=== PATIENT | female | born 1955 | race Caucasian/White ===

== ENCOUNTER → 2019-07-05 | Outpatient (CLI) | payer MEDICARE ==
--- NOTE | 2019-07-05 12:39 | XR ---
EXAMINATION TYPE: XR chest 2V DATE OF EXAM: 07/05/2019 COMPARISON: NONE HISTORY: Presurgical study. TECHNIQUE: Frontal and lateral views of the chest are obtained. FINDINGS: There is no focal air space opacity, pleural effusion, or pneumothorax seen. The cardiac silhouette size is is upper limits of normal. Multilevel spurring in the thoracic spine. IMPRESSION: No acute cardiopulmonary process.
[2019-07-05 13:59] LABS: Basophils # (A) 0.1 k/uL (0-0.2); Basophils % (A) 1 %; Eosinophils # (A) 0.2 k/uL (0-0.7); Eosinophils % (A) 3 %; HCT 42.7 % (34.0-46.0); Lymphocytes # (A) 1.6 k/uL (1.0-4.8); Lymphocytes % (A) 28 %; MCH 31.9 pg (25.0-35.0); MCHC 32.9 g/dL (31.0-37.0); Mean Platelet Volume 7.7; Monocytes # (A) 0.2 k/uL (0-1.0); Monocytes % (A) 4 %; Neutrophils # (A) 3.5 k/uL (1.3-7.7); Neutrophils % (A) 62 %; Platelet Count 173 k/uL (150-450); RDW 13.2 % (11.5-15.5); WBC 5.7 k/uL (3.8-10.6)
[2019-07-05 14:03] LABS: Appearance,Urine Clear (Clear); Bilirubin,Urine Negative (Negative); Blood,Urine Negative (Negative); Color,Urine Yellow; Glucose,Urine (UA) Negative (Negative); Ketones,Urine Negative (Negative); Leukocyte Esterase,Urine Negative (Negative); Nitrite,Urine Negative (Negative); PH, Urine 5.5 (5.0-8.0); Protein,Urine Negative (Negative); Specific Gravity,Urine 1.023 (1.001-1.035)
[2019-07-05 14:07] LABS: Calcium 9.4 mg/dL (8.4-10.2); Potassium 4.4 mmol/L (3.5-5.1)
[2019-07-05 14:12] LABS: INR 0.9 (<1.2); Partial Thromboplastin Time 24.3 sec (22.0-30.0); Prothrombin Time 9.5 sec (9.0-12.0)
== END | disposition home or self-care (01) ==
LOC: LABPAT 12:11
PROVIDERS: ATTEND Orthopaedic Surgery Orthopaedic Surgery of the Spine
DX: Z01.812 Encounter for preprocedural laboratory examination (principal); Z01.818 Encounter for other preprocedural examination; M48.061 Spinal stenosis, lumbar region without neurogenic claudication; Z79.01 Long term (current) use of anticoagulants
CPT/HCPCS: 36415; 71046; 80048; 81003; 85025; 85610; 85730; 87070; 93005

== ENCOUNTER 2019-07-14 07:34 | Inpatient (IN) | payer MEDICARE ==
[~2019-07-14 07:34] MED LIST: BACITRACIN 50,000 UNIT, POLYMYXIN B 500,000 UNIT in SODIUM CHLORIDE 0.9% IRRIGATIO 1,00... IRRIGATION ONE; DEXAMETHASONE SOD PHOSPHATE 10 MG/ML 1 ML VIAL IV ONE; ONDANSETRON 4 MG/2 ML VIAL IVP ONE; ONDANSETRON 4 MG/2 ML VIAL IVP PRN
[2019-07-14] MEDS ORDERED: LACTATED RINGERS 1,000 ML IV ONE ×3 (09:02→13:21)
[2019-07-14] MEDS ORDERED: ePHEDrine SULFATE/0.9% NACL/PF 50 MG/5 ML SYRINGE IV ONE (10:01)
[2019-07-14] MEDS ORDERED: SUCCINYLCHOLINE CHLORIDE 100 MG/5 ML SYR IV ONE (10:01)
[2019-07-14] MEDS ORDERED: KETAMINE 10 MG/ML 20 ML VIAL ONE (10:01)
[2019-07-14] MEDS ORDERED: MIDAZOLAM 2 MG/2 ML VIAL ONE (10:01)
[2019-07-14] MEDS ORDERED: HEPARIN SODIUM,PORCINE 10,000 UNIT/ML 1 ML VIAL ONE (10:01)
[2019-07-14] MEDS ORDERED: HYDROmorphone (PF) 1 MG/ML ONE (10:01)
[2019-07-14] MEDS ORDERED: fentaNYL (PF) 50 MCG/ML 2 ML AMP ONE (10:01)
[2019-07-14] MEDS ORDERED: PROPOFOL 10 MG/ML 20 ML VIAL IV ONE (10:01)
[2019-07-14] MEDS ORDERED: SODIUM CHLORIDE 0.9% IRRIG 1,000 ML BTL IRRIGATION ONE (10:01)
[2019-07-14] MEDS ORDERED: LIDOCAINE 1% INJ 10MG/ML (20 ML MDV) ONE (10:01)
[2019-07-14] MEDS ORDERED: PHENYLEPHRINE-0.9% NACL SYG 1 MG/10 ML SYRINGE ONE (10:01)
[2019-07-14] MEDS ORDERED: LIDOCAINE 1%-EPI 1:100,000 30 ML VIAL SQ ONE (10:54)
[2019-07-14] MEDS ORDERED: THROMBIN (BOVINE) 5,000 UNIT VIAL TOPICAL ONE (10:55)
[2019-07-14] MEDS ORDERED: GELATIN SPONGE,ABSORB (LARGE) 1 EACH SPONGE TOPICAL ONE (10:55)
[2019-07-14] MEDS ORDERED: HYDROmorphone 0.5 MG/0.5 ML SYRINGE IVP PRN (15:05)
[2019-07-14] MEDS ORDERED: MAGNESIUM HYDROXIDE 2,400 MG/10 ML CUP PO PRN (15:05)
[2019-07-14] MEDS ORDERED: BENZOCAINE/MENTHOL LOZENG 1 EACH LOZENGE MUCOUS MEM PRN (15:05)
[2019-07-14] MEDS ORDERED: HYDROcodone/APAP 5-325MG 1 EACH TAB PO PRN (15:06)
[2019-07-14] MEDS ORDERED: ONDANSETRON 4 MG/2 ML VIAL IVP PRN (15:06)
[2019-07-14] MEDS ORDERED: GABAPENTIN 300 MG CAP PO PRN (15:08)
--- NOTE | 2019-07-14 15:17 | P.OP ---
Date of Procedure: 07/14/19 Preoperative Diagnosis: Severe spinal stenosis L3 4 L4 5, lower extremity radiculopathy, neurogenic claudication, degenerative disc disease, facet arthrosis, obesity Postoperative Diagnosis: Same Anesthesia: GETA Pathology: none sent Condition: stable Disposition: PACU Description of Procedure: DESCRIPTION OF PROCEDURE(S): BRIEF OPERATIVE NOTE Preoperative Diagnosis: Severe spinal stenosis L3 4 L4 5, lower extremity radiculopathy, neurogenic claudication, degenerative disc disease, facet arthrosis, obesity Postoperative Diagnosis:Severe spinal stenosis L3 4 L4 5, lower extremity radiculopathy, neurogenic claudication, degenerative disc disease, facet arthrosis, obesity Procedure: Laminectomy and decompression L3 4 L4 5 Minimally invasive Posterior lateral decompression and facet fusion L3 4 L4 5 with computer navigation Minimally invasive Transforaminal lumbar interbody fusion for a 360 fusion L3 4 L4 5 with computer navigation Discectomy for decompression L3 4 L4 5 Placement of interbody graft L3 4 L4 5 Use of computer navigation assistance Local autogenous bone grafting Harvesting of bone marrow aspirate. The vertebral body and pedicle of L3 He's of fluoroscopic guidance Use of Cell Saver Use of bone graft extenders Increased time and difficulty of the case due to patient body habitus Surgeon: Dr. Woodward Barkeep: Lester SIEGEL who is present throughout the entire the case persistence during positioning, dissection, exposure, visualization, and all crucial elements of the case as well as closure. Anesthesia: General anesthesia Estimated blood loss: Approximately 650 mL with 280 connectors Cell Saver Complications: None apparent Components implanted: K2M minimally invasive [place] pedicle screw system with use of 6 screws measuring 6.5 x 45 mm with 2 rods and 2 [place] interbody cages with one large osteal amp sponge and 30 mL of DBX bone fibers to supplement the local autogenous and bone marrow aspirate graft Disposition: To recovery room in good stable condition. OPERATIVE INDICATIONS The patient has had long-standing issues in their lower back and lower extremities. She is having worsening pain in her back in her bilateral lower extremities and having greater debility with trying to ambulate mobilize due to her back and lower external symptoms. She is having severe radiculopathy with neurogenic claudication. She is found have severe spinal stenosis at her lumbar spine with degenerative changes correlated well with her low back and lower extremity symptoms. The patient has been through conservative treatment. She is not having any prolonged benefit despite aggressive conservative treatment. We discussed various treatment options including surgery, and the patient wishes to proceed with surgery We discussed the risk, patient's alternatives and benefits of surgery including but not limited to, risk of bleeding risk of infection, risk of need for further surgery, risk of decreased, loss of motion, muscle function, malunion nonunion, hardware failure, nerve damage, paralysis, heart attack, blindness and . OPERATIVE SUMMARY After discussing all the risks, patient alternatives and benefits at length, the patient elected to proceed with surgical intervention, signed informed consent, and presented for their procedure. The patient was seen and examined in the preoperative holding area and the surgical site was marked. The patient was given antibiotics and brought to the operating room. The patient was sedated and intubated by anesthesia in standard fashion. The patient was positioned on to the operating room table in a prone position on the appropriate frame which was well-padded and well molded. We were careful to pad any bony prominences and pressure points. We were careful to maintain the patient's cervical spine and good neutral alignment and position throughout. The patient was prepped and draped in a normal standard fashion. An appropriate timeout and keystone protocol performed. We were able to proceed with the surgery. The local wound area was infiltrated with local anesthetic. The patient is obese and that added to significant difficulty and increased time and difficulty of the case for positioning dissection exposure visualization decompression placement of hardware and closure. I was able utilize C-arm guidance as well as the computer navigation system to e stablish appropriate position over the pedicles bilaterally at the appropriate levels at L3 4 and 5. I was able to palpate the posterior superior iliac spine and place [address] to assist and establish the computer navigation reference. With the appropriate levels confirmed was able to make small stab incisions over the appropriate pedicle sites bilaterally. Utilizing C-arm in his house able to establish a Jamshidi needle over the lateral aspect of the pedicle and advanced the trocar into the pedicle being careful not to breech superiorly inferiorly medially or laterally. Position was confirmed regularly with computer navigation as well as AP and lateral images on C-arm. I was able to establish the trocar into the pedicle appropriately into the posterior aspect of the vertebral body bilaterally at the appropriate levels at L3-L4 and L5. This was done at each of the pedicle positions and each of the vertebrae. At L3 on the right I was able to withdraw approximately 20 mL of bone marrow aspirate via the trocar to be used later in the case for grafting. I was able place the guidewire into the trocar and into the vertebral body appropriately under computer navigation and C-arm guidance. Dissection was taken down over the wire to the appropriate starting position for the screw placed. The appropriate length screw was chosen, threaded over the guidewire and screwed appropriately into the pedicle and vertebral body under C-arm guidance and computer navigation guidance in excellent alignment and position with good bony purchase. This is done at each of the screw sites at the appropriate levels at L3-L4 and L5 bilaterally. With the screws intact I extended the incision to connect the screw hole sites on the most symptomatic side on the right. I dissected down to establish access over the pars and lamina to the base of the spinous process. I was able to expose the facet joint. The capsule the facet was taken down and showed some facet arthrosis at the joint. I was able to use a combination of curettes and [place] rongeurs and a high-speed drill to take down the facet joint and do a facetectomy. Partial laminectomy was also performed. I was able get excellent foraminal decompression and central decompression with undermining across midline to perform a laminectomy centrally and contralaterally. As able get good central decompression. The ligamentum flavum was taken down to further decompress centrally and at bilateral neural foramen. I started at L45 and then moved to L3 4. I was able to expose the disc space and visualize the traversing nerve root. Note was made of some disc protrusion at the level causing further compression of the nerve root. I was able to establish a annulotomy at the appropriate level protecting soft tissue and neural structures. Note was made of some disc desiccation at the disc. I performed a complete discectomy with accommodation of curettes and rasps and scrapers. I was able get good endplate preparation at the disc space. I sized for the appropriate size interbody spacer protecting the soft tissue and neural structures. The wound was copiously irrigated and suctioned dry. There is no evidence of any dural tear or leak. I was able to pack the disc space with local autogenous bone graft as well as a small amount of bone graft which was also placed into the interbody cage itself. Protecting the soft tissue structures and neural structures I was able place the interbody cage in good alignment and good position with good fit and fill at the interbody space. His issues was confirmed with C-arm guidance. Good hemostasis maintained. There is no evidence of any dural tear or leak. The wound was irrigated and suctioned dry. With the hardware intact, intraoperative C-arm imaging was again taken which showed good alignment and position of the hardware at the appropriate levels of L3 4 and 5. We were then able to measure, contour and place the rods and appropriate hardware bilaterally. I was able to place capcrews, tighten them down, and torque them with the torque screwdriver appropriately. With this intact I was able to place the local autogenous bone graft with additional bone graft enhancer as necessary into the posterior lateral gutters over the decorticated transverse processes. The remainder of the bone graft was placed over the facet joint on the contralateral side after taking down the facet joint capsule. With the bone graft intact, a stable construct, and good decompression at the appropriate levels, we were able to proceed with closure. Good hemostasis was maintained. There is no evidence of dural tear or leak. The fascia was closed for a watertight closure. he subcuticular tissue was closed with absorbable suture. The wound was cleaned and dried and dressed with the appropriate dressing. The drapes were broken down. The patient was gently rolled back onto their hospital bed being careful to maintain their cervical spine and good neutral alignment and position. They were woken up by anesthesia, extubated, and brought to the recovery room in good stable condition. The patient will be admitted to the hospital for appropriate postoperative care, medical management and monitoring. We will continue to follow them closely about the postoperative course.
[2019-07-14] MEDS: HYDROmorphone 0.5 MG/0.5 ML SYRINGE IVP PRN ×4 (15:22→16:17)
[2019-07-14] MEDS ORDERED: HYDROmorphone 1 MG/ML 1 ML SYRINGE IVP ONE (15:23)
--- NOTE | 2019-07-14 15:36 | XR ---
Fluoroscopy INDICATION: Pain FINDINGS: Images obtained: 2. IMPRESSIONS: 1. Documentation of fluoroscopy.
[2019-07-14] MEDS ORDERED: ceFAZolin 3 GM in SODIUM CHLORIDE 0.9% 100 ML IVPB SCH (16:00)
--- NOTE | 2019-07-14 16:00 | FL ---
Fluoroscopy INDICATION: Pain FINDINGS: Fluoroscopy time: 1 minute to seconds. Images obtained: 2. IMPRESSIONS: 1. Documentation of fluoroscopy.
[2019-07-14] MEDS: LACTATED RINGERS 1,000 ML IV SCH (16:50)
[2019-07-14 17:37] VITALS: BMI 36.3
[2019-07-14] MEDS: SODIUM CHLORIDE 0.9% 1,000 ML IV SCH (18:05)
[2019-07-14] MEDS ORDERED: ALPRAZolam 0.25 MG TAB PO PRN (19:14)
[2019-07-14] MEDS: HYDROcodone/APAP 5-325MG 1 EACH TAB PO PRN (19:34)
[2019-07-14] MEDS: HYDROmorphone 1 MG/ML 1 ML SYRINGE IVP PRN (20:45)
[2019-07-14] MEDS: HEPARIN SODIUM,PORCINE 5,000 UNIT/ML 1 ML VIAL SQ SCH (20:45)
--- NOTE | 2019-07-14 22:13 | CONS ---
CONSULTATION DATE OF SERVICE: 07/14/2019 REASON FOR CONSULTATION: Advice regarding hypertension and multiple medical issues, requested by Dr. Woodward. HISTORY OF PRESENT ILLNESS: This is a 63-year-old woman with a past medical history of hypertension, history of colitis, right leg pain and sciatica, history of depression, nicotine dependence, being followed by Dr. Felicity Corona in the outpatient setting. She underwent laminectomy and decompression of L3-4, L4-5 for severe spinal stenosis and DJD. The patient tolerated the procedure well. There is no history of any chest pain, no history of palpitation, headache, loss of consciousness, nausea, vomiting, diarrhea, fever, rigor or chills at this time. PAST MEDICAL HISTORY: 1. History of hypertension. 2. History of colitis. 3. History of DJD. 4. Depression. HOME MEDICATIONS: 1. Zestoretic 20/12.5 mg p.o. daily. 2. Gabapentin 600 mg t.i.d. p.r.n. 3. Clobetasol 1 application daily. 4. Celebrex 200 mg p.o. daily. ALLERGIES: 1. LATEX. 2. OCEAN PERCH. 3. WEEDS. FAMILY HISTORY: No history of heart disease or strokes in the family. SOCIAL HISTORY: History of smoking, continued, ongoing. Occasional alcohol intake. REVIEW OF SYSTEMS: ENT: No diminished hearing. No diminished vision. CARDIOVASCULAR SYSTEM: No angina, palpitations. RESPIRATORY SYSTEM: No cough, hemoptysis. GI: No nausea, vomiting. : No dysuria or retention. NERVOUS SYSTEM: No numbness, weakness. ALLERGY/IMMUNOLOGY: No asthma, hayfever. MUSCULOSKELETAL: As mentioned earlier. HEMATOLOGY/ONCOLOGY: No history of anemia. ENDOCRINE: No history of diabetes, hypothyroidism. CONSTITUTIONAL: As mentioned earlier. DERMATOLOGY: Negative. RHEUMATOLOGY: Negative. PSYCHIATRY: As mentioned earlier. PHYSICAL EXAMINATION: Patient alert and oriented x3. Pulse is 72, blood pressure 110/70, respiration 20, temperature normal, pulse ox 94% on 3 L. HEENT: Conjunctivae normal. NECK: No jugular venous distention. CARDIOVASCULAR SYSTEM: S1, S2 muffled. RESPIRATORY SYSTEM: Breath sounds diminished at the bases. No rhonchi. No crackles. ABDOMEN: Soft, non-tender. No mass palpable. LEGS: No edema. No swelling. NERVOUS SYSTEM: Higher functions as mentioned earlier. Moves upper limbs. No focal deficit. EXAMINATION OF THE BACK: Status post surgery. LABS: Hematology normal. Coags are normal. Preoperative labs, chemistries also normal. UA unremarkable. ASSESSMENT: 1. Status post laminectomy and decompression of L3-4, L4-5 for severe spinal stenosis and degenerative joint disease with radiculopathy. 2. Hypertension. 3. History of colitis. 4. History of eczema. 5. History of left oblique nerve palsy. 6. History of depression. 7. History of nicotine dependence. RECOMMENDATIONS AND DISCUSSION: In this 63-year-old woman who presented with multiple medical issues, at this time I recommend to continue current management, continue with symptomatic treatment. Otherwise, DVT prophylaxis, incentive spirometry. Will follow the patient closely with you. The patient may be asked to follow up with her primary physician closely after discharge. Thank you, Dr. Woodward, for letting us participate in the care of this patient. MMODL / IJN: [id number] /
[2019-07-15] MEDS: HYDROmorphone 1 MG/ML 1 ML SYRINGE IVP PRN ×4 (02:34→23:32)
[2019-07-15] MEDS: HYDROcodone/APAP 5-325MG 1 EACH TAB PO PRN ×3 (04:17→22:23)
[2019-07-15] MEDS: SODIUM CHLORIDE 0.9% 1,000 ML IV SCH ×2 (04:21→20:02)
[2019-07-15] MEDS: LACTATED RINGERS 1,000 ML IV SCH (04:58)
[2019-07-15 08:21] LABS: Basophils % (A) 0 %; Eosinophils % (A) 0 %; HCT 36.6 % (34.0-46.0); Lymphocytes # (A) 1.3 k/uL (1.0-4.8); Lymphocytes % (A) 10 %; MCHC 32.8 g/dL (31.0-37.0); MCV 97.6 fL (80.0-100.0); Mean Platelet Volume 7.7; Monocytes # (A) 0.3 k/uL (0-1.0); Monocytes % (A) 3 %; Neutrophils # (A) 11.1 k/uL (1.3-7.7); Neutrophils % (A) 86 %; Platelet Count 198 k/uL (150-450); RBC 3.75 m/uL (3.80-5.40); RDW 13.2 % (11.5-15.5); WBC 12.9 k/uL (3.8-10.6)
[2019-07-15 08:24] LABS: Potassium 4.4 mmol/L (3.5-5.1)
--- NOTE | 2019-07-15 08:40 | P.PN ---
Progress Note - Text Progress Note Date: 07/15/19 Postoperative day #1 Patient is seen and examined today at bedside. The patient has some pain around the surgical site as expected. Pain is being controlled with medication. She was able to the bedside of bed yesterday. She denies any nausea or vomiting. She is still on nasal cannula. Physical Exam Afebrile with stable vital signs Abdomen is soft nontender. Chest has good excursion deep and space expiration The incision site is clean dry and intact. No erythema there is no purulence. Dressings intact Extremities have not had neurologic change from prior to surgery. She has sustained dorsal flexion plantarflexion and EHL intact. Thigh and calf soft. Negative Homans Calves and thighs were soft nontender without evidence of DVT. Assessment/Plan Postoperative day 1 status post minimally invasive decompression and fusion L3 4 L4 5 for her severe spinal stenosis with lower extremity radiculopathy and neurogenic claudication Patient is progressing as expected from the surgery. She has been able to sit up already and will start to mobilize further with physical therapy. Her Simon was discontinued and she feels that she'll be able to void appropriately. She is tolerating her diet adequately. We will continue to increase the patient's mobilization with therapy. We will continue pain control with oral or IV medications. We'll have case management see her in regards to discharge planning as she may require some home health but feels she could be ready for discharge home in the next 2 days or so . We'll continue to follow patient closely.
[2019-07-15] MEDS: LISINOPRIL-HCTZ 20-12.5 MG 1 EACH TAB PO SCH (09:14)
[2019-07-15] MEDS: HEPARIN SODIUM,PORCINE 5,000 UNIT/ML 1 ML VIAL SQ SCH ×2 (09:14→19:51)
[2019-07-15] MEDS: CLOBETASOL PROP 0.05% OINT 15GM TOPICAL SCH (09:14)
[2019-07-15] MEDS: SENNOSIDES-DOCUSATE SODIUM 1 EACH TAB PO SCH (09:14)
--- NOTE | 2019-07-15 16:26 | PN ---
PROGRESS NOTE DATE OF SERVICE: 07/15/2019. This 63-year-old woman who was admitted after laminectomy and decompression at L3-4, L4- 5 is improving significantly. No chest pain. No palpitations. No fever. PHYSICAL EXAMINATION: Alert and oriented x3. Pulse 89, blood pressure 93/60, respirations 16, temperature 98.2, pulse ox 97% on 3 L. HEENT: Conjunctivae normal. NECK: No jugular venous distention. CARDIOVASCULAR SYSTEM: S1, S2 muffled. RESPIRATORY SYSTEM: Breath sounds diminished at the bases. No rhonchi. No crackles. ABDOMEN: Soft. LEGS: No edema. No swelling. NERVOUS SYSTEM: No focal deficit. LABS: WBC 12.9, creatinine 1.17. The previous creatinine was normal. ASSESSMENT: 1. Status post laminectomy and decompression at L3-4, L4-5 for severe spinal stenosis and degenerative joint disease and radiculopathy. 2. Hypertension. 3. History of colitis. 4. History of eczema. 5. History of oblique nerve palsy. 6. History of depression. 7. History of nicotine dependence. RECOMMENDATIONS AND DISCUSSION: I recommend to continue current medications, continue with the monitoring, symptomatic treatment. Otherwise, we will check the UA with micro. Incentive spirometry. DVT prophylaxis. Further recommendations to follow. MMODL / IJN: [id number] /
[2019-07-15] MEDS ORDERED: HYDROcodone/APAP 7.5-325MG 1 EACH TAB PO PRN (23:26)
[2019-07-16] MEDS: LACTATED RINGERS 1,000 ML IV SCH (00:02)
[2019-07-16] MEDS: HYDROmorphone 1 MG/ML 1 ML SYRINGE IVP PRN ×3 (02:51→12:09)
[2019-07-16 07:11] LABS: Basophils # (A) 0.1 k/uL (0-0.2); Basophils % (A) 1 %; Eosinophils # (A) 0.2 k/uL (0-0.7); Eosinophils % (A) 1 %; HCT 34.3 % (34.0-46.0); HGB 11.2 gm/dL (11.4-16.0); Lymphocytes # (A) 1.3 k/uL (1.0-4.8); Lymphocytes % (A) 10 %; MCH 32.1 pg (25.0-35.0); MCHC 32.6 g/dL (31.0-37.0); MCV 98.5 fL (80.0-100.0); Mean Platelet Volume 8.5; Monocytes # (A) 0.4 k/uL (0-1.0); Monocytes % (A) 3 %; Neutrophils # (A) 11.2 k/uL (1.3-7.7); Neutrophils % (A) 84 %; Platelet Count 146 k/uL (150-450); RBC 3.48 m/uL (3.80-5.40); RDW 13.4 % (11.5-15.5); WBC 13.3 k/uL (3.8-10.6)
[2019-07-16 07:23] LABS: Calcium 7.7 mg/dL (8.4-10.2); Potassium 4.4 mmol/L (3.5-5.1)
--- NOTE | 2019-07-16 08:51 | P.PN ---
Progress Note - Text Progress Note Date: 07/16/19 Orthopedic Spine Patient is a pleasant 63-year-old female who is seen and examined at the bedside following posterior lateral decompression and fusion performed Friday. She continues to have significant lumbar pain postoperatively. She states her back pain is her most significant symptom. She is not currently complaining of lower extremity weakness radiculopathy. She has been able to ambulate to the restroom with assistance. She is voiding without difficulty. She has been trying to eat some food. She is quite drowsy with the narcotic pain medication. She states his narcotic pain medication is necessary for pain control. She is unsure if she'll be able to be discharged home at the time of discharge as she does not feel she has been able to increase her mobility. She would like to discuss possible rehab [facility] with case management. Patient is eating and voiding freely without difficulty. Physical Exam Lumbar Fusion: Status post surgical day number 2 Patient is awake, alert, and oriented 3 Vital signs stable Good chest excursion with deep inspiration and expiration Abdomen soft nontender Dorsiflexion, plantarflexion, and extensor hallucis longus positive sustained bilaterally No signs or symptoms of DVT; no calf pain; pneumatic cuffs not currently intact bilateral lower extremities Dressing is clean, dry, and intact; no erythema, purulence, or signs of infection Neurovascularly intact bilaterally lower extremities Assessment: L3-4 and L4-5 minimally invasive posterior lateral decompression and fusion with transforaminal lumbar interbody fusion Low back pain Lumbar degenerative disc disease Topping lumbar facet arthrosis Neurogenic claudication Obesity History of hypertension Plan: 1. Ambulate as tolerated; work with Physical Therapy to increase mobilization 2. Continue pain control with IV and oral medications MAPS has been reviewed today, 07/16/2019, with an Overall Overdose Risk Score of 110 and a narcotic score of 20. An "Opiod Start Talking" Form has been signed by the patient and myself in place in the patient's chart. A prescription has been written for Bennet 7.5 mg/325 mg 1-2 tabs every 6 hours as needed for pain, dispensed #84. Prescription is placed in the patient's chart. Patient should avoid anti-inflammatory medication over the next 6 weeks postoperatively 3. Dressing to remain intact with silver dressing and Tegaderm 4. Medical management can continue to manage patient for patient's other medical issues 5. We will continue to follow the patient closely; patient has been progressing slowly postoperatively. At this time we will place consultation with case management to discuss possible rehab placement 6. Patient can follow-up with Lester Payan PA-C or Dr. Brody Woodward at [facility] in 2-3 weeks following discharge
[2019-07-16] MEDS: SODIUM CHLORIDE 0.9% 1,000 ML IV SCH ×3 (09:02→20:38)
[2019-07-16] MEDS: SENNOSIDES-DOCUSATE SODIUM 1 EACH TAB PO SCH (09:03)
[2019-07-16] MEDS: HYDROcodone/APAP 7.5-325MG 1 EACH TAB PO PRN (09:03)
[2019-07-16] MEDS: LISINOPRIL-HCTZ 20-12.5 MG 1 EACH TAB PO SCH (09:03)
[2019-07-16] MEDS: CLOBETASOL PROP 0.05% OINT 15GM TOPICAL SCH (09:03)
[2019-07-16] MEDS: HEPARIN SODIUM,PORCINE 5,000 UNIT/ML 1 ML VIAL SQ SCH ×2 (09:03→20:39)
[2019-07-16 12:36] LABS: Appearance,Urine Clear (Clear); Bilirubin,Urine Negative (Negative); Blood,Urine Small (Negative); Color,Urine Yellow; Glucose,Urine (UA) Negative (Negative); Ketones,Urine Negative (Negative); Leukocyte Esterase,Urine Negative (Negative); Mucus,Urine Rare /hpf; Nitrite,Urine Negative (Negative); Protein,Urine Trace (Negative); RBC,Urine 2 /hpf (0-5); Specific Gravity,Urine 1.015 (1.001-1.035); Squamous Epithelial Cell,Urine 2 /hpf (0-4); Urobilinogen,Urine <2.0 mg/dL (<2.0); WBC,Urine 1 /hpf (0-5)
--- NOTE | 2019-07-16 17:52 | P.PN ---
Subjective Progress Note Date: 07/16/19 Principal diagnosis: posterior lateral decompression and fusion 63-year-old female who is seen and examined at the bedside following posterior lateral decompression and fusion performed Friday. She continues to have significant lumbar pain postoperatively. She states her back pain is her most significant symptom. She is not currently complaining of lower extremity weakness radiculopathy. She has been able to ambulate to the restroom with assistance. She is voiding without difficulty. She has been trying to eat some food. She is quite drowsy with the narcotic pain medication. She states his narcotic pain medication is necessary for pain control. She is unsure if she'll be able to be discharged home at the time of discharge as she does not feel she has been able to increase her mobility. She would like to discuss possible rehab [facility]a with case management. Patient is eating and voiding freely without difficulty. Objective - Vital Signs Vital signs: Vital Signs Temp 98.0 F 07/16/19 09:10 Pulse 101 H 07/16/19 09:10 Resp 16 07/16/19 09:10 BP 102/67 07/16/19 09:10 Pulse Ox 95 07/16/19 09:10 Intake & Output 07/15/19 07/16/19 07/16/19 18:59 06:59 18:59 Intake Total 700 450 240 Output Total 150 Balance 550 450 240 Intake: Intake, IV Titration 450 450 Amount Sodium Chloride 0.9% 1, 450 450 000 ml @ 100 mls/hr IV . Q10H [facility] Rx#:[id number] Oral 250 240 Output: Urine 150 Other: Voiding Method Toilet Toilet # Voids 2 1 - Exam PHYSICAL EXAMINATION: GENERAL: The patient is alert and oriented x3, not in any acute distress. Well developed, well nourished. HEENT: Pupils are round and equally reacting to light. EOMI. No scleral icterus. No conjunctival pallor. Normocephalic, atraumatic. No pharyngeal erythema. No thyromegaly. CARDIOVASCULAR: S1 and S2 present. No murmurs, rubs, or gallops. PULMONARY: Chest is clear to auscultation, no wheezing or crackles. ABDOMEN: Soft, nontender, nondistended, normoactive bowel sounds. No palpable organomegaly. MUSCULOSKELETAL: No joint swelling or deformity. EXTREMITIES: No cyanosis, clubbing, or pedal edema. NEUROLOGICAL: Gross neurological examination did not reveal any focal deficits. SKIN: No rashes. - Labs CBC & Chem 7: 07/16/19 06:39 07/16/19 06:39 Labs: Abnormal Lab Results - Last 24 Hours (Table) 07/16/19 07/16/19 Range/Units 06:39 06:39 WBC 13.3 H (3.8-10.6) k/uL RBC 3.48 L (3.80-5.40) m/uL Hgb 11.2 L (11.4-16.0) gm/dL Plt Count 146 L (150-450) k/uL Neutrophils # 11.2 H (1.3-7.7) k/uL Sodium 132 L (137-145) mmol/L BUN 27 H (7-17) mg/dL Creatinine 1.60 H (0.52-1.04) mg/dL Glucose 107 H (74-99) mg/dL Calcium 7.7 L (8.4-10.2) mg/dL Assessment and Plan Assessment: 1. Status post laminectomy and decompression at L3-4, L4-5 for severe spinal stenosis 2. Hypertension 3. Depression 4. History of colitis Plan: 1. Ambulate as tolerated; work with Physical Therapy to increase mobilization 2. Continue pain control with IV and oral medications 3. Dressing to remain intact with silver dressing and Tegaderm 4. Medical management can continue to manage patient for patient's other medical issues 5. We will continue to follow the patient closely; patient has been progressing slowly postoperatively. At this time we will place consultation with case management to discuss possible rehab placement Time with Patient: Greater than 30
[2019-07-17] MEDS ORDERED: HALOPERIDOL LACTATE 5 MG/ML 1 ML VIAL IM ONE (01:12)
[2019-07-17] MEDS: SODIUM CHLORIDE 0.9% 1,000 ML IV SCH ×3 (08:14→20:14)
[2019-07-17] MEDS: LACTATED RINGERS 1,000 ML IV SCH (08:14)
[2019-07-17] MEDS: HYDROcodone/APAP 7.5-325MG 1 EACH TAB PO PRN (09:06)
[2019-07-17] MEDS: SENNOSIDES-DOCUSATE SODIUM 1 EACH TAB PO SCH (09:07)
[2019-07-17] MEDS: LISINOPRIL-HCTZ 20-12.5 MG 1 EACH TAB PO SCH (09:07)
[2019-07-17] MEDS: HEPARIN SODIUM,PORCINE 5,000 UNIT/ML 1 ML VIAL SQ SCH ×3 (09:07→20:15)
[2019-07-17] MEDS: CLOBETASOL PROP 0.05% OINT 15GM TOPICAL SCH (09:08)
[2019-07-17 09:55] LABS: Calcium 8.8 mg/dL (8.4-10.2); Potassium 3.8 mmol/L (3.5-5.1)
[2019-07-17 11:46] LABS: Appearance,Urine Clear (Clear); Bacteria,Urine Rare /hpf; Bilirubin,Urine Negative (Negative); Blood,Urine Small (Negative); Color,Urine Light Yellow; Glucose,Urine (UA) Trace (Negative); Hyaline Casts,Urine 1 /lpf (0-2); Ketones,Urine Negative (Negative); Leukocyte Esterase,Urine Negative (Negative); Mucus,Urine Rare /hpf; Nitrite,Urine Negative (Negative); Protein,Urine Trace (Negative); RBC,Urine <1 /hpf (0-5); Specific Gravity,Urine 1.006 (1.001-1.035); Urobilinogen,Urine <2.0 mg/dL (<2.0); WBC,Urine <1 /hpf (0-5)
--- NOTE | 2019-07-17 13:02 | P.PN ---
Subjective Progress Note Date: 07/17/19 Principal diagnosis: posterior lateral decompression and fusion 63-year-old female who is seen and examined at the bedside following posterior lateral decompression and fusion performed Friday. She continues to have significant lumbar pain postoperatively. She states her back pain is her most significant symptom. She is not currently complaining of lower extremity weakness radiculopathy. She has been able to ambulate to the restroom with assistance. She is voiding without difficulty. She has been trying to eat some food. She is quite drowsy with the narcotic pain medication. She states his narcotic pain medication is necessary for pain control. She is unsure if she'll be able to be discharged home at the time of discharge as she does not feel she has been able to increase her mobility. She would like to discuss possible rehab [facility] with case management. Patient is eating and voiding freely without difficulty. 07/17/2019 Patient is seen and evaluated with family members at bedside; remains somnolent but easily arousable with for post ablation Vital signs remained stable with a temperature of 98.5, pulse monitor, respiration 18 and blood pressure of 162/95 Labs are reviewed and are stable with a sodium of 131, potassium of 3.8, BUN 18 and creatinine of 0.97; hemoglobin is unremarkable Patient is stable for discharge from medical standpoint Objective - Vital Signs Vital signs: Vital Signs Temp 98.0 F 07/17/19 00:45 Pulse 125 H 07/17/19 00:45 Resp 18 07/17/19 00:45 BP 177/86 07/17/19 00:45 Pulse Ox 92 L 07/17/19 00:45 Intake & Output 07/16/19 07/17/19 07/17/19 18:59 06:59 18:59 Intake Total 480 180 Balance 480 180 Intake: Oral 480 180 Other: Voiding Method Toilet Diaper # Voids 2 1 - Exam PHYSICAL EXAMINATION: GENERAL: The patient is alert and oriented x3, not in any acute distress. Well developed, well nourished. HEENT: Pupils are round and equally reacting to light. EOMI. No scleral icterus. No conjunctival pallor. Normocephalic, atraumatic. No pharyngeal erythema. No thyromegaly. CARDIOVASCULAR: S1 and S2 present. No murmurs, rubs, or gallops. PULMONARY: Chest is clear to auscultation, no wheezing or crackles. ABDOMEN: Soft, nontender, nondistended, normoactive bowel sounds. No palpable organomegaly. MUSCULOSKELETAL: No joint swelling or deformity. EXTREMITIES: No cyanosis, clubbing, or pedal edema. NEUROLOGICAL: Gross neurological examination did not reveal any focal deficits. SKIN: No rashes. - Labs CBC & Chem 7: 07/16/19 06:39 07/17/19 09:22 Labs: Abnormal Lab Results - Last 24 Hours (Table) 07/16/19 Range/Units 12:14 Urine Protein Trace H (Negative) Urine Blood Small H (Negative) Urine Mucus Rare H (None) /hpf Assessment and Plan Assessment: 1. Status post laminectomy and decompression at L3-4, L4-5 for severe spinal stenosis 2. Hypertension 3. Depression 4. History of colitis Plan: 1. Ambulate as tolerated; work with Physical Therapy to increase mobilization 2. Continue pain control with IV and oral medications 3. Dressing to remain intact with silver dressing and Tegaderm 4. Medical management can continue to manage patient for patient's other medical issues 5. We will continue to follow the patient closely; patient has been progressing slowly postoperatively. At this time we will place consultation with case management to discuss possible rehab placement
[2019-07-18] MEDS: LACTATED RINGERS 1,000 ML IV SCH ×2 (01:27→22:40)
[2019-07-18] MEDS: CLOBETASOL PROP 0.05% OINT 15GM TOPICAL SCH (09:33)
[2019-07-18] MEDS: LISINOPRIL-HCTZ 20-12.5 MG 1 EACH TAB PO SCH (09:33)
[2019-07-18] MEDS: SENNOSIDES-DOCUSATE SODIUM 1 EACH TAB PO SCH (09:33)
[2019-07-18] MEDS: HEPARIN SODIUM,PORCINE 5,000 UNIT/ML 1 ML VIAL SQ SCH ×2 (09:33→19:50)
[2019-07-18] MEDS: amLODIPine 2.5 MG TAB PO SCH (09:35)
--- NOTE | 2019-07-18 11:57 | P.PN ---
Subjective Progress Note Date: 07/18/19 Principal diagnosis: posterior lateral decompression and fusion 63-year-old female who is seen and examined at the bedside following posterior lateral decompression and fusion performed Friday. She continues to have significant lumbar pain postoperatively. She states her back pain is her most significant symptom. She is not currently complaining of lower extremity weakness radiculopathy. She has been able to ambulate to the restroom with assistance. She is voiding without difficulty. She has been trying to eat some food. She is quite drowsy with the narcotic pain medication. She states his narcotic pain medication is necessary for pain control. She is unsure if she'll be able to be discharged home at the time of discharge as she does not feel she has been able to increase her mobility. She would like to discuss possible rehab [facility]a with case management. Patient is eating and voiding freely without difficulty. 07/17/2019 Patient is seen and evaluated with family members at bedside; remains somnolent but easily arousable with verbal stimulation Vital signs remained stable with a temperature of 98.5, pulse monitor, respiration 18 and blood pressure of 162/95 Labs are reviewed and are stable with a sodium of 131, potassium of 3.8, BUN 18 and creatinine of 0.97; hemoglobin is unremarkable Patient is stable for discharge from medical standpoint 07/18/2019 Patient is seen and evaluated in room; sitting up in bedside chair; complains of constipation; has been taking stool softener Vital signs are stable with a temperature of 98.2, pulse 85, respirations 16 and blood pressure of 148/77 Labs are reviewed and are stable Patient continues to ambulate with therapy; orthopedic surgeries recommending transfer to skilled rehab; according to patient she would prefer to be discharged home with home care but willing to be evaluated by therapy tomorrow for final discharge planning Uncontrolled hypertension; we will add Norvasc 2.5 mg daily and monitor blood pressure closely Constipation; order Senokot 1 by mouth daily; MOM when necessary Objective - Vital Signs Vital signs: Vital Signs Temp 98.8 F 07/18/19 02:53 Pulse 99 07/18/19 02:53 Resp 16 07/18/19 02:53 BP 153/89 07/18/19 02:53 Pulse Ox 94 L 07/18/19 02:53 Intake & Output 07/17/19 07/18/19 07/18/19 18:59 06:59 18:59 Intake Total 240 Balance 240 Intake: Oral 240 Other: Voiding Method Toilet Toilet Diaper Diaper # Voids 3 2 - Exam PHYSICAL EXAMINATION: GENERAL: The patient is alert and oriented x3, not in any acute distress. Well developed, well nourished. HEENT: Pupils are round and equally reacting to light. EOMI. No scleral icterus. No conjunctival pallor. Normocephalic, atraumatic. No pharyngeal erythema. No thyromegaly. CARDIOVASCULAR: S1 and S2 present. No murmurs, rubs, or gallops. PULMONARY: Chest is clear to auscultation, no wheezing or crackles. ABDOMEN: Soft, nontender, nondistended, normoactive bowel sounds. No palpable organomegaly. MUSCULOSKELETAL: No joint swelling or deformity. EXTREMITIES: No cyanosis, clubbing, or pedal edema. NEUROLOGICAL: Gross neurological examination did not reveal any focal deficits. SKIN: No rashes. - Labs CBC & Chem 7: 07/16/19 06:39 07/17/19 09:22 Labs: Abnormal Lab Results - Last 24 Hours (Table) 07/17/19 07/17/19 Range/Units 09:12 09:22 Sodium 131 L (137-145) mmol/L BUN 18 H (7-17) mg/dL Glucose 168 H (74-99) mg/dL Urine Protein Trace H (Negative) Urine Glucose (UA) Trace H (Negative) Urine Blood Small H (Negative) Urine Bacteria Rare H (None) /hpf Urine Mucus Rare H (None) /hpf Assessment and Plan Assessment: 1. Status post laminectomy and decompression at L3-4, L4-5 for severe spinal stenosis 2. Hypertension 3. Depression 4. History of colitis Plan: 1. Ambulate as tolerated; work with Physical Therapy to increase mobilization 2. Continue pain control with IV and oral medications 3. Dressing to remain intact with silver dressing and Tegaderm 4. Medical management can continue to manage patient for patient's other medical issues 5. We will continue to follow the patient closely; patient has been progressing slowly postoperatively. At this time we will place consultation with case management to discuss possible rehab placement
[2019-07-18] MEDS ORDERED: BISACODYL 10 MG SUPP RECTAL STA (12:23)
[2019-07-18] MEDS ORDERED: NA PHOS,M-B/NA PHOS,DI-BA 133 ML ENEMA RECTAL PRN (12:54)
--- NOTE | 2019-07-18 13:04 | P.PN ---
Progress Note - Text Progress Note Date: 07/18/19 Postoperative day #4 Patient is seen and examined today at bedside. The patient has some pain around the surgical site as expected but she feels that this is making improvement. Pain is being controlled with medication. She does feel bloated around her abdomen and has not had a bowel movement. She says she is passing very small amount of gas. She denies any nausea or vomiting. Physical Exam Afebrile with stable vital signs Abdomen is distended with some mild tenderness. Chest has good excursion deep and space expiration The incision site is clean dry and intact. No erythema there is no purulence. Extremities have not had neurologic change from prior to surgery. Calves and thighs were soft nontender without evidence of DVT. Assessment/Plan Postoperative day #4 Patient is progressing as expected from the surgery in terms of her pain and her ambulation. However she is having abdominal distention and is developing small ileus I will hopefully resolve with some treatment we will order an enema today and see if that allows her to start moving. It is okay for her to shower with waterproof dressing intact. We will continue to increase the patient's mobilization with therapy. We will continue pain control with oral or IV medications. If she is able to start moving her bowels she'll likely be able to be discharged home tomorrow with home health We'll continue to follow patient closely.
[2019-07-18] MEDS: SODIUM CHLORIDE 0.9% 1,000 ML IV SCH ×3 (18:56→22:39)
[2019-07-18 20:11] VITALS: TEMP 98.2
[2019-07-19 07:30] VITALS: BP 113/67; PULSE 60; RESP 16
--- NOTE | 2019-07-19 08:29 | P.DS ---
Providers Date of admission: 07/14/19 08:37 Expected date of discharge: 07/19/19 Attending physician: Annetta Woodward Consults: 07/14/19 15:06 Consult Physician Routine Consulting Provider: Layne López Consult Reason/Comments: Medical management Do you want consulting provider notified?: Yes Primary care physician: Felicity Corona - Discharge Diagnosis(es) (1) Neurogenic claudication Current Visit: Yes Status: Acute (2) Low back pain Current Visit: Yes Status: Acute (3) Radiculopathy with lower extremity symptoms Current Visit: Yes Status: Acute (4) Lumbar degenerative disc disease Current Visit: Yes Status: Acute (5) Lumbar facet arthropathy Current Visit: Yes Status: Acute (6) Hypertension Current Visit: Yes Status: Acute (7) Obesity Current Visit: Yes Status: Acute (8) Spinal stenosis, lumbar Current Visit: Yes Status: Acute Hospital Course: This is a pleasant 63-year-old female who presented with L3-4 and L4-5 severe spinal canal stenosis, degenerative disc disease, and facet arthrosis with lower extremity radiculopathy and neurogenic claudication who failed outpatient conservative therapy. She also has a medical history of obesity and hypertension. She was admitted for an L3-4 and L4-5 minimally invasive posterior lateral decompression and fusion with transforaminal lumbar interbody fusion. Initially she had been progressing quite slowly. Over the past couple days she has made significant improvement. She is able to ambulate to the restroom. She's been ambulating to the halls with therapy. Her back pain continues to be present but is better controlled. She is not currently complaining of the lower extremity radiculopathy symptoms. She was having some difficulty with constipation. She states she does has a history of colitis as well and is usually very regular all movements. After a Fleet enema she is able to have 2 bowel movements yesterday with a large bowel movement approximate 7:00 PM. At this time she feels she is ready for discharge home today. Condition on day of discharge stable. Patient will be discharged home. Patient was cleared preoperatively for surgery by Dr. Felicity Corona. Patient currently denies any nausea, vomiting, fever, or chills. Patient is eating and voiding freely without difficulty. Patient may shower Tegaderm dressing intact. Patient may remove Tegaderm dressing in 2 days and shower without a dressing at that time. Patient should keep Steri-Strips intact and allow them to fall off naturally. Patient should refrain from driving until at least after their first follow-up appointment in the office. Patient should avoid excessive bending, lifting, and twisting; no lifting greater than 10 pounds. MAPS has been reviewed on 07/16/2019 with an Overall Overdose Risk Score of 110 and a narcotic score of 20. An "Opiod Start Talking" Form has been signed by the patient and myself in place in the patient's chart. A prescription has been written for [place] 7.5 mg/325 mg 1-2 tabs every 6 hours as needed for pain, dis pensed #84. Prescription is placed in the patient's chart. Patient should avoid anti-inflammatory medication including Celebrex over the next 6 weeks postoperatively. Physical Exam on day of discharge: Patient is awake, alert, and oriented 3 Vital signs stable Good chest excursion with deep inspiration and expiration Abdomen soft nontender No signs or symptoms of DVT; no calf pain Extensor hallucis longus, plantarflexion, and dorsiflexion positive sustained bilateral lower extremities Incisions are clean, dry, and intact; no erythema, purulence, or signs of infection Tegaderm dressing and non-stick Telfa intact over the lumbar spine 2 incisions are healing well over the superior iliac spine posteriorly Procedures: L3-4 and L4-5 minimally invasive posterior lateral decompression and fusion with transforaminal lumbar interbody fusion Patient Condition at Discharge: Stable Plan - Discharge Summary Discharge Rx Participant: Yes New Discharge Prescriptions: New HYDROcodone/APAP 7.5-325MG [[place] 7.5-325] 1 - 2 tab PO Q6HR PRN 7 Days #84 tab PRN Reason: Pain No Action Gabapentin 600 mg PO TID PRN PRN Reason: Pain Celecoxib [CeleBREX] 200 mg PO DAILY Lisinopril-Hctz 20-12.5 mg [Zestoretic 20-12.5] 1 tab PO DAILY Clobetasol Propionate [Temovate 0.05% Oint] 1 applic TOPICAL DAILY Discharge Medication List Celecoxib [CeleBREX] 200 mg PO DAILY 07/07/19 [History] Gabapentin 600 mg PO TID PRN 07/07/19 [History] Clobetasol Propionate [Temovate 0.05% Oint] 1 applic TOPICAL DAILY 07/08/19 [History] Lisinopril-Hctz 20-12.5 mg [Zestoretic 20-12.5] 1 tab PO DAILY 07/08/19 [History] HYDROcodone/APAP 7.5-325MG [[place] 7.5-325] 1 - 2 tab PO Q6HR PRN 7 Days #84 tab 07/16/19 [Rx] Follow up Appointment(s)/Referral(s): Annetta Woodward DO [Doctor of Osteopathic Medicine] - 07/27/19 2:15 pm [facility],Equipment [NON-STAFF] - As Needed (walker) Aimee Wood, [NON-STAFF] - As Needed [facility], [NON-STAFF] - 1-2 Days Activity/Diet/Wound Care/Special Instructions: 1. Patient may shower with silver and Tegaderm dressing intact. 2. Patient may remove silver and Tegaderm dressing in 2 days and shower without a dressing at that time. 3. Patient should keep Steri-Strips intact and allow them to fall off naturally. 4. Patient should refrain from driving until at least after their first follow- up appointment in the office. 5. Patient should avoid excessive bending, twisting, and lifting; no lifting greater than 10 pounds 6. Take medications as prescribed 7. Do not soak in tub Discharge Disposition: HOME SELF-CARE
[2019-07-19] MEDS: LISINOPRIL-HCTZ 20-12.5 MG 1 EACH TAB PO SCH (09:29)
[2019-07-19] MEDS: amLODIPine 2.5 MG TAB PO SCH (09:30)
[2019-07-19] MEDS: CLOBETASOL PROP 0.05% OINT 15GM TOPICAL SCH (09:30)
[2019-07-19] MEDS: SENNOSIDES-DOCUSATE SODIUM 1 EACH TAB PO SCH (09:30)
[2019-07-19] MEDS: HEPARIN SODIUM,PORCINE 5,000 UNIT/ML 1 ML VIAL SQ SCH (09:30)
--- NOTE | 2019-07-19 16:03 | P.PN ---
Subjective Progress Note Date: 07/19/19 Principal diagnosis: 63-year-old female who is seen and examined at the bedside following posterior lateral decompression and fusion performed Friday. She continues to have significant lumbar pain postoperatively. She states her back pain is her most significant symptom. She is not currently complaining of lower extremity weakness radiculopathy. She has been able to ambulate to the restroom with assistance. She is voiding without difficulty. She has been trying to eat some food. She is quite drowsy with the narcotic pain medication. She states his narcotic pain medication is necessary for pain control. She is unsure if she'll be able to be discharged home at the time of discharge as she does not feel she has been able to increase her mobility. She would like to discuss possible rehab [facility]reya with case management. Patient is eating and voiding freely without difficulty. 07/17/2019 Patient is seen and evaluated with family members at bedside; remains somnolent but easily arousable with verbal stimulation Vital signs remained stable with a temperature of 98.5, pulse monitor, respiration 18 and blood pressure of 162/95 Labs are reviewed and are stable with a sodium of 131, potassium of 3.8, BUN 18 and creatinine of 0.97; hemoglobin is unremarkable Patient is stable for discharge from medical standpoint 07/18/2019 Patient is seen and evaluated in room; sitting up in bedside chair; complains of constipation; has been taking stool softener Vital signs are stable with a temperature of 98.2, pulse 85, respirations 16 and blood pressure of 148/77 Labs are reviewed and are stable Patient continues to ambulate with therapy; orthopedic surgeries recommending transfer to skilled rehab; according to patient she would prefer to be discharged home with home care but willing to be evaluated by therapy tomorrow for final discharge planning Uncontrolled hypertension; we will add Norvasc 2.5 mg daily and monitor blood pressure closely Constipation; order Senokot 1 by mouth daily; MOM when necessary 07/19/2019 Is sitting up in the chair with the back brace on in no acute distress. Per nursing staff patient had a few bowel movements with large bowel movement yesterday. Patient states that she is passing gas and is not having much acute abdominal pain just some minor discomfort occasionally. That she is used to having diarrhea quite often but has been on a lot of pain medication and has been constipated. Patient does have stool softeners and laxatives at home. Patient states that she has been getting up and using a walker and getting to the bathroom on her own. Patient is still refusing rehab and would like to follow-up with physical therapy in the outpatient setting. Patient denies any chest pain, shortness of breath, or palpitations at this time. Patient is afebrile. Patient denies any nausea or vomiting and is tolerating diet. Patient's blood pressures have stabilized. Patient will like to go home today and states she is being discharged by Dr. Woodward today. Guarded prognosis. Objective - Vital Signs Vital signs: Vital Signs Temp 98.2 F 07/19/19 07:08 Pulse 60 07/19/19 07:08 Resp 16 07/19/19 07:08 BP 113/67 07/19/19 07:08 Pulse Ox 97 07/19/19 07:08 Intake & Output 07/18/19 07/19/19 07/19/19 18:59 06:59 18:59 Intake Total 350 100 Balance 350 100 Intake: Oral 350 100 Other: Voiding Method Toilet Toilet Diaper Diaper # Voids 2 3 - Exam GENERAL: The patient is alert and oriented x3, not in any acute distress. Well developed, well nourished. Vital signs are stable. Blood pressure is 148/77, pulse is 85, respirations are 16, temp is 98.2F, oxygen saturation is 97% on room air. HEENT: Pupils are round and equally reacting to light. EOMI. No scleral icterus. No conjunctival pallor. Normocephalic, atraumatic. No pharyngeal erythema. No thyromegaly. CARDIOVASCULAR: S1 and S2 present. No murmurs, rubs, or gallops. PULMONARY: Chest is clear to auscultation, no wheezing or crackles. ABDOMEN: Soft, nontender, nondistended, normoactive bowel sounds. No palpable organomegaly. MUSCULOSKELETAL: No joint swelling or deformity. EXTREMITIES: No cyanosis, clubbing, or pedal edema. NEUROLOGICAL: Gross neurological examination did not reveal any focal deficits. SKIN: No rashes. - Labs CBC & Chem 7: 07/16/19 06:39 07/17/19 09:22 Assessment and Plan Assessment: Assessment: 1. Status post laminectomy and decompression at L3-4, L4-5 for severe spinal stenosis 2. Hypertension 3. Depression 4. History of colitis discussion and recommendations Recommend continue current medication, management, and symptomatic treatment. Patient will continue working with PT/OT for strength and mobility. Will continue to follow along closely. Patient is refusing rehab and will follow-up in the outpatient setting with physical therapy upon discharge. Case management and social work are following. Guarded prognosis. Further recommendations to follow. Probable discharge today by Dr. Woodward.
--- NOTE | 2019-07-21 05:13 | CDI ---
Documentation Clarification Form Date: 07/21/19 From: Reinaldo Munson Phone: call [phone] Admit Date: 07/14/2019 8:37:00 AM Patient Name: Marleny Van Visit Number: [id number] Discharge Date: 07/19/2019 11:54:00 AM ATTENTION: The Clinical Documentation Specialists (CDI) and [facility] Coding Staff appreciate your assistance in clarifying documentation. Please respond to the clarification below the line at the bottom and electronically sign. The CDI & [facility] Coding staff will review the response and follow-up if needed. Please note: Queries are made part of the Legal Health Record. If you have any questions, please contact the author of this message via ITS. Dr. Annetta Woodward, The patient presented with the Spinal stenosis underwent lumbar fusion. History/Risk Factors: Spinal stenosis Surgery : Lumbar 360 degree fusion In 07/18 progress note stated as "However she is having abdominal distention and is developing small ileus I will hopefully resolve with some treatment we will order an enema today " In order to accurately reflect this patient's severity of illness, please clarify the post-operative ileus diagnosis: Post-op ileus is an expected condition An un expected Post procedural or post-surgical condition related to surgical care(a complication care) Other, please specify Unable to determine The patient was developing some abdominal distention and had a Dulcolax suppository which will enabled her to start moving her bowels and have bowel movement. She was then able to have regular bowel movements. She did not develop into having an ileus. JULIANA
== END 2019-07-19 11:54 | disposition home health service (06) | DRG 455 ==
LOC: 2ORMAIN 08:37 → 4SSUR 15:40
PROVIDERS: ADMIT Orthopaedic Surgery Orthopaedic Surgery of the Spine; ATTEND Orthopaedic Surgery Orthopaedic Surgery of the Spine
PROC: 0SG1071 Fusion of 2 or more Lumbar Vertebral Joints with Autologous Tissue Substitute, Posterior Approach, Posterior Column, Open Approach (ICD-10-PCS; principal; 2019-07-14 09:45)
PROC: 01NB0ZZ Release Lumbar Nerve, Open Approach (ICD-10-PCS; principal; 2019-07-14 09:45)
PROC: 0ST20ZZ Resection of Lumbar Vertebral Disc, Open Approach (ICD-10-PCS; principal; 2019-07-14 09:45)
PROC: 07DS3ZZ Extraction of Vertebral Bone Marrow, Percutaneous Approach (ICD-10-PCS; principal; 2019-07-14 09:45)
PROC: 0SG10AJ Fusion of 2 or more Lumbar Vertebral Joints with Interbody Fusion Device, Posterior Approach, Anterior Column, Open Approach (ICD-10-PCS; principal; 2019-07-14 09:45)
DX: M48.062 Spinal stenosis, lumbar region with neurogenic claudication (principal); M51.36 Other intervertebral disc degeneration, lumbar region; I10 Essential (primary) hypertension; M51.16 Intervertebral disc disorders with radiculopathy, lumbar region; E66.9 Obesity, unspecified; F32.9 Major depressive disorder, single episode, unspecified; K59.00 Constipation, unspecified; R14.0 Abdominal distension (gaseous); Z68.37 Body mass index [BMI] 37.0-37.9, adult; Z87.891 Personal history of nicotine dependence; Z91.040 Latex allergy status; Z91.048 Other nonmedicinal substance allergy status; Z90.89 Acquired absence of other organs
CPT/HCPCS: 72100; 80048; 81001; 85025; 86850; 86891; 86900; 86901; 94760

== ENCOUNTER → 2021-06-01 | Outpatient (CLI) | payer MEDICARE ==
[2021-06-01 12:26] LABS: HCT 41.8 % (34.0-46.0); HGB 14.5 gm/dL (11.4-16.0); MCH 34.4 pg (25.0-35.0); MCHC 34.6 g/dL (31.0-37.0); MCV 99.2 fL (80.0-100.0); Mean Platelet Volume 7.9; Platelet Count 219 k/uL (150-450); RBC 4.21 m/uL (3.80-5.40); RDW 12.8 % (11.5-15.5); WBC 5.1 k/uL (3.8-10.6)
[2021-06-01 12:36] LABS: Albumin 4.1 g/dL (3.5-5.0); Calcium 9.7 mg/dL (8.4-10.2); Potassium 4.4 mmol/L (3.5-5.1); Total Bilirubin 0.5 mg/dL (0.2-1.3); Total Protein 7.3 g/dL (6.3-8.2)
[2021-06-01 12:49] LABS: INR 0.9 (<1.2); Prothrombin Time 9.8 sec (9.0-12.0)
[2021-06-01 12:50] LABS: Partial Thromboplastin Time 23.8 sec (22.0-30.0)
== END | disposition home or self-care (01) ==
LOC: LABPAT 10:46
PROVIDERS: ATTEND Orthopaedic Surgery
DX: Z01.812 Encounter for preprocedural laboratory examination (principal); M16.11 Unilateral primary osteoarthritis, right hip
CPT/HCPCS: 80053; 85027; 85610; 85730; 87070

== ENCOUNTER → 2021-06-06 | Outpatient (CLI) | payer MEDICARE ==
[2021-06-07 14:46] LABS: Appearance,Urine Cloudy (Clear); Bacteria,Urine Occasional /hpf; Bilirubin,Urine Negative (Negative); Blood,Urine Negative (Negative); Color,Urine Yellow; Glucose,Urine (UA) Negative (Negative); Ketones,Urine Negative (Negative); Leukocyte Esterase,Urine Negative (Negative); Mucus,Urine Rare /hpf; Nitrite,Urine Positive (Negative); Protein,Urine Negative (Negative); RBC,Urine 1 /hpf (0-5); Specific Gravity,Urine 1.015 (1.001-1.035); Squamous Epithelial Cell,Urine 2 /hpf (0-4); Urobilinogen,Urine <2.0 mg/dL (<2.0); WBC,Urine 1 /hpf (0-5)
== END ==
LOC: LABPAT 14:10
PROVIDERS: ATTEND Orthopaedic Surgery
DX: Z01.812 Encounter for preprocedural laboratory examination (principal); M16.11 Unilateral primary osteoarthritis, right hip
CPT/HCPCS: 81001

== ENCOUNTER 2021-06-11 05:29 | Day surgery (SDC) | payer MEDICARE ==
[2021-06-05 12:12] VITALS: BMI 33.3
[~2021-06-11 05:29] MED LIST changes: +ACETAMINOPHEN TAB 500 MG TAB PO PRN; -BACITRACIN 50,000 UNIT, POLYMYXIN B 500,000 UNIT in SODIUM CHLORIDE 0.9% IRRIGATIO 1,00... IRRIGATION ONE; -DEXAMETHASONE SOD PHOSPHATE 10 MG/ML 1 ML VIAL IV ONE; +GABAPENTIN 300 MG CAP PO PRN; +LIDOCAINE 1% (10MG/ML) FOR IV START INTRADERMA PRN; +MELOXICAM 7.5 MG TAB PO PRN; -ONDANSETRON 4 MG/2 ML VIAL IVP ONE; -ONDANSETRON 4 MG/2 ML VIAL IVP PRN; +ROPIVACAINE/EPI/CLONIDINE/KET 50 ML SYRINGE MISCELLANE PRN; +TRANEXAMIC ACID 1,000 MG in SODIUM CHLORIDE 0.9% 100 ML IVPB PRN
[2021-06-11] MEDS ORDERED: LACTATED RINGERS 1,000 ML IV ONE ×3 (05:50→13:26)
[2021-06-11] MEDS ORDERED: DEXAMETHASONE SOD PHOSPHATE 4 MG/ML 1 ML VIAL IVP ONE (05:59)
[2021-06-11] MEDS ORDERED: ONDANSETRON 4 MG/2 ML VIAL IVP ONE ×2 (05:59→09:11)
[2021-06-11] MEDS ORDERED: GLYCOPYRROLATE 0.2 MG/ML 2 ML VIAL ONE (06:55)
[2021-06-11] MEDS ORDERED: PHENYLEPHRINE-0.9% NACL SYG 1,000 MCG/10 ML SYRINGE ONE (06:55)
[2021-06-11] MEDS ORDERED: SODIUM CHLORIDE 0.9% IRRIG 1,000 ML BTL IRRIGATION ONE (06:55)
[2021-06-11] MEDS ORDERED: HEPARIN SODIUM,PORCINE 10,000 UNIT/ML 1 ML VIAL ONE (06:55)
[2021-06-11] MEDS ORDERED: LIDOCAINE 1% INJ 10MG/ML (20 ML MDV) ONE (06:55)
[2021-06-11] MEDS ORDERED: SODIUM CHLORIDE 0.9% 100 ML BAG ONE (06:55)
[2021-06-11] MEDS ORDERED: fentaNYL (PF) 50 MCG/ML 2 ML AMP ONE (06:55)
[2021-06-11] MEDS ORDERED: HYDROmorphone (PF) 1 MG/ML ONE (06:55)
[2021-06-11] MEDS ORDERED: PROPOFOL 10 MG/ML 20 ML VIAL IV ONE (06:55)
[2021-06-11] MEDS ORDERED: NEOSTIGMINE 1 MG/ML 10 ML VIAL ONE (06:55)
[2021-06-11] MEDS ORDERED: ROCURONIUM 10 MG/ML (5 ML VIAL) IV ONE (06:55)
[2021-06-11] MEDS ORDERED: SUCCINYLCHOLINE CHLORIDE 100 MG/5 ML SYR IV ONE (06:55)
[2021-06-11] MEDS ORDERED: TRANEXAMIC ACID 1,000 MG/10 ML VIAL ONE (06:55)
[2021-06-11] MEDS ORDERED: MIDAZOLAM 2 MG/2 ML VIAL ONE (06:55)
--- NOTE | 2021-06-11 08:11 | P.OP ---
Date of Procedure: 06/11/21 Preoperative Diagnosis: Severe osteoarthritis right hip Postoperative Diagnosis: Severe osteoarthritis right hip Procedure(s) Performed: Right total hip arthroplasty with a direct anterior approach Implants: [employer] Polarstem standard size 6 [employer] R3, 3 hole hemispherical acetabular shell, 48 mm [employer] Reflection 6.5 mm cancellus screw, 20 mm 2 [employer] R3, XLPE 20 acetabular liner [employer] Oxinium femoral head 32 m, -3 All components were press-fit. The articulation is Oxinium on polyethylene. Anesthesia: GETA Surgeon: Cj Johnson Chief Customer Officer #1: Khalida Eddy Estimated Blood Loss (ml): 200 (62 mL returned with Cell Saver) Pathology: other (Femoral head) Condition: stable Disposition: PACU Indications for Procedure: After failure of conservative treatment we discussed the surgical and nonsurgical treatment options at length. Patient wishes to proceed with a total hip arthroplasty with a direct anterior approach. Complications specific to this procedure were discussed at length, including but not limited to infection, leg length discrepancy, dislocation, nerve injury, and fracture. Covid-19 was also discussed at length with the patient, and they are aware of the current policies and procedures. The patient was given the option of delaying surgery, but they elect to proceed knowing these risks. Patient is aware of all these complications and informed consent was obtained Operative Findings: The operative findings are consistent with severe osteoarthritis of the right hip Description of Procedure: Patient was seen and evaluated in the preoperative area and the consent was reviewed. The operative site was marked with a skin marker. The patient was then brought to the operating room and given preoperative antibiotics intravenously. 1 g of Tranexamic acid was also given intravenously. A general anesthetic was administered by the anesthesia department. The patient was then placed on the [place] table with the bony prominences well-padded. The hip area was then prepped with a ChloraPrep solution and draped in the usual sterile fashion. A universal timeout was then performed, which confirmed the patient's name, surgical site, ALLERGIES, and procedure being performed on the consent. Next the incision site was located at 1 cm distal to the anterior superior iliac spine along the flexion crease of the hip. The skin and subcutaneous tissues were sharply incised. Incision was carefully dissected down to the fascia overlying the tensor fascia parker muscle. This fascia was then incised in line with the incision. Care was taken to stay laterally in order to avoid injuring the lateral femoral cutaneous nerve. Next, using blunt finger dissection, the tensor fascia parker muscle was dissected off its investing fascia. The muscle was then carefully retracted laterally with a cobra retractor over the lateral neck of the femur. Next, the circumflex vessels were identified and cauterized using the AquaMantis device. The anterior hip capsule was then exposed. The capsule was then opened and an inverted T fashion. Cobra retractors were then placed intracapsularly. The retractors were maintained intracapsular throughout the procedure. The proximal femur was then visualized. A small amount of traction was placed on the leg. The femoral neck was then osteotomized appropriate level above the lesser trochanter. A small wedge of bone was then removed from the remaining femoral head. Next, using a corkscrew the femoral head was removed from the acetabulum. On gross visual inspection, the femoral head had complete loss of articular cartilage and multiple periarticular osteophytes. The femoral head was then measured. Attention was then turned to the acetabulum. The acetabulum was exposed and any remaining labrum was excised. Sequential reaming of the acetabulum was performed using fluoroscopic guidance until there was a good bed of bleeding cancellus bone. When the appropriate size was reached, a trial was then placed. The position and fit of the trial was checked with fluoroscopy. The trial was then removed. Then, using fluoroscopic guidance, the final implant was impacted at 20 of anteversion and 40 of abduction, and fully seated in the acetabulum. 2 screws were then placed in the acetabulum. Again fluoroscopy was used to check position of the screws. Next, the liner was then impacted, with a 20 elevated liner located in the anterior superior quadrant. Component locking was confirmed. Attention was then directed to the femur. With the aid of the [place] table, the femur was externally rotated to approximately 130, extended, and adducted under the opposite leg. A side hook was then placed under the proximal femur, and the side hook elevator was used to elevate the proximal femur while releasing the capsule. Retractors were then placed. A capsular release was performed, as well as a release of the conjoined tendon, which afforded excellent visualization of the proximal femur. Next, a box osteotome was used to lateralize the proximal femur. A merchandising manager was then used to locate the femoral canal. Sequential broaching was then performed with appropriate size which afforded excellent fixation in the proximal femur. A trial was then placed with appropriate head and neck, and the hip was gently reduced with the aid of the [place] table. Fluoroscopy was then used to check position of the components, as well as to ensure equal leg lengths. The hip was then gently dislocated and the trials were then removed. Final implants were then impacted and the hip was again reduced. Final fluoroscopic x-rays confirmed that the components were in anatomic position, as well as equal leg lengths. The hip was also taken through range of motion, and found to be stable. The hip was then copiously irrigated with antibiotic solution with pulsatile lavage. The hip was then irrigated with Irrisept solution. The soft tissues were then injected with a ropivacaine solution, which consisted of 246.25 mg of ropivacaine, 0.5 mg of epinephrine, 30 mg of Toradol, 80 g of clonidine, and 48.45 mL of sterile water, for a total of 100 mL of fluid injected. A second dose of 1 g of Tranexamic acid was also given intravenously. Any blood collected by Cell Saver was then returned to the patient at this time. The fascia was then closed with 2-0 strata fix suture. The subcutaneous tissue was closed with 3-0 Vicryl. The subcuticular tissue was closed with 3-0 strata fix suture. The skin was then closed with Exofin skin glue. After the glue and dried, and Optifoam silver impregnated dressing was applied. The patient was then transferred to the recovery room in stable condition. The study assistant CHRISTAL Mills was required due to the complexity of surgery, and the need for skilled surgery assistant for positioning, draping, exposure, retraction, and closure of the wound.
[2021-06-11] MEDS ORDERED: HYDROmorphone 0.2 MG/1 ML SYRINGE IVP PRN (08:37)
[2021-06-11] MEDS ORDERED: HYDROmorphone 0.5 MG/0.5 ML SYRINGE IVP PRN ×2 (08:37)
[2021-06-11] MEDS ORDERED: NALOXONE 0.4 MG/ML 1 ML VIAL IV PRN (08:37)
[2021-06-11] MEDS ORDERED: HYDROcodone/APAP 7.5-325MG 1 EACH TAB PO PRN (08:38)
--- NOTE | 2021-06-11 08:44 | XR ---
EXAMINATION TYPE: XR Hip Limited RT, FL guidance operating room DATE OF EXAM: 06/11/2021 Comparison: None available Clinical History: Rt Hip-Ant Findings: 3 intraoperative images during right hip total arthroplasty. FLUOROSCOPY Fluoroscopy time of 28 seconds was used during right hip total arthroplasty. 3 image/s document/s th e procedure. Impression: Intraoperative fluoroscopy as above.
[2021-06-11] MEDS ORDERED: SODIUM CHLORIDE 0.9% 1,000 ML IV SCH (08:45)
[2021-06-11] MEDS ORDERED: HYDROmorphone 0.5 MG/0.5 ML SYRINGE IVP ONE (08:56)
[2021-06-11] MEDS ORDERED: ONDANSETRON 4 MG/2 ML VIAL ONE (09:06)
--- NOTE | 2021-06-11 09:27 | XR ---
EXAMINATION TYPE: XR Hip Limited RT, one view DATE OF EXAM: 06/11/2021 Comparison: None Clinical History: 65-year-old female Status post hip surgery, assess surgical alignment Findings: Image shows placement of right hip total arthroplasty. Alignment grossly anatomic. Acetabular cup and femoral stem components of the prosthesis appear well seated. Some soft tissue air related to recent operation. Impression: Uncomplicated postoperative appearance right hip total arthroplasty.
[2021-06-11] MEDS: HYDROcodone/APAP 7.5-325MG 1 EACH TAB PO PRN ×2 (10:57→23:06)
[2021-06-11] MEDS: ALBUMIN HUMAN 5% (12.5gm) 250 ML BOTTLE IVPB ONE ×2 (15:30→16:26)
[2021-06-11] MEDS ORDERED: ALBUMIN HUMAN 5% 250 ML in EMPTY BAG 1 BAG IVPB STA (16:02)
[2021-06-11] MEDS: LACTATED RINGERS 1,000 ML IV SCH ×2 (17:33→18:16)
[2021-06-11] MEDS ORDERED: DICYCLOMINE 20 MG TAB PO PRN (19:44)
--- NOTE | 2021-06-11 20:28 | XR ---
EXAMINATION TYPE: XR chest 1V portable DATE OF EXAM: 06/11/2021 COMPARISON: 07/05/2019 HISTORY: Short of breath TECHNIQUE: Single view FINDINGS: There is no heart failure nor confluent pneumonic infiltrate. Costophrenic angles are clear . Bony thorax is intact. There are no hilar masses. There are probably some calcified granulomata at the pulmonary zachary. IMPRESSION: No active cardiopulmonary disease. No change.
[2021-06-11] MEDS ORDERED: SODIUM CHLORIDE 0.9% 500 ML 500 ML IV ONE (20:31)
[2021-06-11 21:56] LABS: Basophils % (A) 0 %; Eosinophils % (A) 0 %; HCT 35.5 % (34.0-46.0); HGB 11.9 gm/dL (11.4-16.0); Lymphocytes % (A) 9 %; MCH 34.1 pg (25.0-35.0); MCHC 33.5 g/dL (31.0-37.0); Macrocytosis Slight; Monocytes # (A) 0.4 k/uL (0-1.0); Monocytes % (A) 3 %; Neutrophils # (A) 10.2 k/uL (1.3-7.7); Neutrophils % (A) 87 %; Platelet Count 201 k/uL (150-450); RBC 3.48 m/uL (3.80-5.40); RDW 13.2 % (11.5-15.5); WBC 11.7 k/uL (3.8-10.6)
--- NOTE | 2021-06-11 21:59 | CONS ---
CONSULTATION DATE OF SERVICE: 06/11/2021 REASON FOR CONSULTATION: Advice regarding hypotension and other multiple medical issues, requested by Dr. Johnson. HISTORY OF PRESENT ILLNESS: This 65-year-old woman with a past medical history of hypertension, history of colitis, history of right leg pain, sciatica, DJD, underwent right total hip arthroplasty with a direct anterior approach for severe DJD. Postoperatively the patient has had hypotension. Patient received multiple doses of IV boluses and the patient was admitted for further evaluation and treatment. Her blood pressure is fluctuating at 97/61, 87/53. There is no history of any fever, rigors or chills. No history of chest pain, palpitations, shortness of breath, hematochezia, melena at this time. Preoperative labs are satisfactory. PAST MEDICAL HISTORY: Hypertension, colitis, right leg pain, sciatica, DJD, depression. MEDICATIONS: Home medications are Tylenol, biotin, Lomotil, lisinopril, Senokot, Zofran, [place]. Doses are reviewed. ALLERGIES: LATEX, OCEAN PERCH AND WEEDS. FAMILY HISTORY: No history of heart disease or strokes in the family. SOCIAL HISTORY: Smoking currently. Occasional alcohol intake. REVIEW OF SYSTEMS: ENT: No diminished hearing. No diminished vision. CARDIOVASCULAR SYSTEM: No angina, palpitations. Otherwise as mentioned earlier. RESPIRATORY SYSTEM: No cough, hemoptysis. GI: No nausea, vomiting. : No dysuria. NERVOUS SYSTEM: No numbness, weakness. ALLERGY/IMMUNOLOGY: No asthma or hay fever. MUSCULOSKELETAL: As mentioned earlier. HEMATOLOGY/ONCOLOGY: As mentioned earlier. ENDOCRINE: No history of diabetes or hypothyroidism. CONSTITUTIONAL: As mentioned earlier. DERMATOLOGY: Negative. RHEUMATOLOGY: Negative. PSYCHIATRY: As mentioned earlier. PHYSICAL EXAMINATION: Patient alert, oriented x3. Pulse 80, blood pressure 87/53, respirations 16, temperature 97.8, pulse ox 97% on room air. HEENT: Conjunctivae normal. Oral mucosa moist. NECK: No jugular venous distention. No carotid bruit. No lymph node enlargement. CARDIOVASCULAR SYSTEM: S1, S2 muffled. No S3. No S4. RESPIRATORY: Breath sounds diminished at the bases. No rhonchi. No crackles. ABDOMEN: Soft, nontender. No mass palpable. LEGS: Status post hip arthroplasty. NERVOUS SYSTEM: Higher functions as mentioned earlier. Moves all 4 limbs. No focal motor or sensory deficit. LYMPHATICS: No lymph node palpable in neck, axillae or groin. SKIN: No ulcer, rash, bleeding. JOINTS: As mentioned earlier. LABS: Labs are not available. ASSESSMENT: 1. Status post right total hip joint arthroplasty for severe degenerative joint disease. 2. Postoperative hypotension. 3. History of hypertension. 4. History of colitis. 5. History of eczema. 6. History of left oblique nerve palsy. 7. Depression. 8. History of continued nicotine dependence. 9. FULL CODE. RECOMMENDATIONS AND DISCUSSION: In this 65-year-old woman who presented with multiple medical issues, we will monitor the patient closely, continue the current medications. We will hold off the lisinopril. We will resume the rest of the medications. I would also recommend STAT labs as well as IV fluid bolus and increase IV fluids to 125 mL/hour. Obtain a STAT portable chest x-ray, EKG as well as a set of troponins to rule out any cardiac issues. Otherwise, we will continue to monitor. Repeat labs will be ordered for tomorrow. We will follow the patient closely with you. The patient may be asked to follow up with her primary physician closely after discharge. Thank you, Dr. Johnson, for letting us participate in the care of this patient. MMODL / IJN: [id number] /
[2021-06-11 22:05] LABS: ALT 13 U/L (4-34); AST 32 U/L (14-36); African American GFR (CKD) 58 (>60 ml/min/1.73 sqM); Albumin 3.7 g/dL (3.5-5.0); Albumin/Globulin Ratio 1.4; Alkaline Phosphatase 72 U/L (38-126); Anion Gap 7 mmol/L; Blood Urea Nitrogen 21 mg/dL (7-17); Calcium 8.8 mg/dL (8.4-10.2); Carbon Dioxide 23 mmol/L (22-30); Chloride 98 mmol/L (98-107); Globulin 2.6 g/dL; Glucose 131 mg/dL (74-99); Non-African American GFR(CKD) 51 (>60 ml/min/1.73 sqM); Potassium 4.8 mmol/L (3.5-5.1); Sodium 128 mmol/L (137-145); Total Bilirubin 0.2 mg/dL (0.2-1.3); Total Protein 6.3 g/dL (6.3-8.2)
[2021-06-11] MEDS: SODIUM CHLORIDE 0.9% 1,000 ML IV SCH (22:45)
[2021-06-11] MEDS: ASPIRIN 325 MG TAB PO SCH (22:45)
[2021-06-12] MEDS: SODIUM CHLORIDE 0.9% 1,000 ML IV SCH (06:13)
[2021-06-12] MEDS: ASPIRIN 325 MG TAB PO SCH (07:17)
[2021-06-12 07:27] VITALS: BP 96/61; PULSE 74; RESP 17; TEMP 98.6
--- NOTE | 2021-06-12 08:52 | P.DS ---
Providers Expected date of discharge: 06/12/21 Attending physician: Cj Johnson Consults: 06/11/21 14:19 Consult Physician Routine Consulting Provider: Layne López Consult Reason/Comments: medical management Do you want consulting provider notified?: Yes Primary care physician: Stacia Alegre - Discharge Diagnosis(es) (1) Osteoarthritis of right hip Current Visit: Yes Status: Acute (2) S/P total hip arthroplasty Current Visit: Yes Status: Acute Hospital Course: This is a 65-year-old female with known history of degenerative arthritis of the right hip. The patient presented for evaluation as an outpatient. After discussion and consideration patient elects to proceed with total hip arthroplasty. The patient is seen preoperatively by Dr. Johnson and medically cleared for surgery by their primary care physician. Patient is admitted to [facility] on 06/11/2021 for total hip arthroplasty. The procedure is performed without complication or sequelae. The patient is doing well postoperatively. Labs and vital signs are stable on day of discharge. On day of discharge patient's hip incision is healing well. There is minimal erythema. There is no drainage noted at this time. There is minimal soft tis breanna swelling to the hip and thigh. Patient has full foot and ankle motion without difficulty or pain. Calf is soft and nontender to palpation. Neurovascular status to the right lower extremity is intact. Patient is discharged home in good condition. Opioid start talking form is reviewed and signed. Please see med rec for accurate list of home medications. Plan - Discharge Summary Discharge Rx Participant: No New Discharge Prescriptions: New HYDROcodone/APAP 7.5-325MG [[place] 7.5-325] 1 - 2 tab PO Q6H PRN #32 tab PRN Reason: Pain Sennosides [Senokot] 2 tab PO DAILY PRN #60 tablet PRN Reason: Constipation Aspirin 325 mg PO BID #60 tab Ondansetron Odt [Zofran Odt] 1 tab PO Q8HR PRN #10 tab PRN Reason: Nausea No Action Lisinopril-Hctz 20-12.5 mg [Zestoretic 20-12.5] 1 tab PO QAM Diphenoxylate HCl/Atropine [Lomotil 2.5-0.025 mg Tablet] 1 - 2 tab PO QID PRN PRN Reason: Loose Stool Multivitamins, Thera [Multivitamin (formulary)] 1 tab PO DAILY Dicyclomine [Bentyl] 20 mg PO QID PRN PRN Reason: Ulcerative Colitis Biotin 5,000 mcg PO DAILY Acetaminophen [Tylenol Extra Strength] 1,000 mg PO Q4H PRN PRN Reason: Pain Discharge Medication List Lisinopril-Hctz 20-12.5 mg [Zestoretic 20-12.5] 1 tab PO QAM 07/08/19 [History] Acetaminophen [Tylenol Extra Strength] 1,000 mg PO Q4H PRN 06/05/21 [History] Biotin 5,000 mcg PO DAILY 06/05/21 [History] Dicyclomine [Bentyl] 20 mg PO QID PRN 06/05/21 [History] Diphenoxylate HCl/Atropine [Lomotil 2.5-0.025 mg Tablet] 1 - 2 tab PO QID PRN 06/05/21 [History] Multivitamins, Thera [Multivitamin (formulary)] 1 tab PO DAILY 06/05/21 [History] Aspirin 325 mg PO BID #60 tab 06/11/21 [Rx] HYDROcodone/APAP 7.5-325MG [[place] 7.5-325] 1 - 2 tab PO Q6H PRN #32 tab 06/11/21 [Rx] Ondansetron Odt [Zofran Odt] 1 tab PO Q8HR PRN #10 tab 06/11/21 [Rx] Sennosides [Senokot] 2 tab PO DAILY PRN #60 tablet 06/11/21 [Rx] Follow up Appointment(s)/Referral(s): Stacia Alegre DO [Primary Care Provider] - 1 Week [facility], [NON-STAFF] - As Needed ([facility]OULD CONTACT PATIENT BY NOON, IF YOU DO NOT HEAR FROM [facility] , PLEASE Call OFFICE) Cj Johnson DO [Doctor of Osteopathic Medicine] - 06/25/21 2:30 pm (With Khalida) Patient Instructions/Handouts: *Surgery [facility] - (Anesthesia) Discharge Instructions Outpatient Surgery, How to Use an Incentive Spirometer (DC), Anterior Hip Replacement (DC) Activity/Diet/Wound Care/Special Instructions: Weightbearing as tolerated with walker. Leave dressing intact. Dressing may be removed by home care nurse or by patient in 7 days. Then change dressing twice daily until follow up. May shower with initial dressing intact and after removal. If dressing become saturated, please remove. Please take aspirin 325mg twice daily for 30 days to prevent blood clots. Recommend use of compression stockings daily until follow up to help prevent swelling and blood clots. May remove at night before sleeping. Please follow-up with [facility] in 2 weeks and call with any questions or concerns, . Discharge Disposition: HOME WITH HOME HEALTH SERVICES
[2021-06-12 08:56] LABS: Basophils # (A) 0.02 X 10*3/uL (0.00-0.10); Basophils % (A) 0.2 %; Eosinophils # (A) 0.01 X 10*3/uL (0.04-0.35); Eosinophils % (A) 0.1 %; HCT 32.2 % (37.2-46.3); HGB 10.4 g/dL (12.0-15.0); Lymphocytes # (A) 1.91 X 10*3/uL (0.90-5.00); Lymphocytes % (A) 21.1 %; MCH 33.2 pg (27.0-32.0); MCHC 32.3 g/dL (32.0-37.0); MCV 102.9 fL (80.0-97.0); Mean Platelet Volume 10.3 fL (9.5-12.2); Monocytes # (A) 0.41 X 10*3/uL (0.20-1.00); Monocytes % (A) 4.5 %; Neutrophils # (A) 6.69 X 10*3/uL (1.80-7.70); Neutrophils % (A) 73.8 %; Platelet Count 183 X 10*3/uL (140-440); RBC 3.13 X 10*6/uL (4.10-5.20); RDW 13.9 % (11.5-14.5); WBC 9.07 X 10*3/uL (4.50-10.00)
[2021-06-12] MEDS ORDERED: MULTIVITAMINS, THERA 1 EACH TAB PO SCH (09:00)
[2021-06-12 10:22] LABS: African American GFR (CKD) 67.5 (60.0-200.0); Anion Gap 4.7 mmol/L (4.00-12.00); Calcium 7.8 mg/dL (8.7-10.3); Carbon Dioxide 24.3 mmol/L (21.6-31.8); Non-African American GFR(CKD) 58.2 (60.0-200.0); Potassium 4.3 mmol/L (3.5-5.5)
--- NOTE | 2021-06-12 17:52 | PN ---
PROGRESS NOTE DATE OF SERVICE: 06/12/2021 This 65-year-old woman with a past medical history of multiple medical issues being followed by Dr. Alegre in the outpatient setting was admitted after right total hip joint arthroplasty, postoperatively patient had some relative hypotension for which the patient received multiple fluid boluses. The patient was found to have mild renal insufficiency but the creatinine is improved to 1 from 1.13, hemoglobin is 10.4. White count is normal and the troponins are normal. The patient is keen on going home and [facility] is planning for discharge also. No chest pain. No palpitations. No fever. PHYSICAL EXAMINATION: Alert and oriented times three. Pulse 74, blood pressure 90/60, respiration 17, temperature 98.4, pulse ox 98 percent on room air. HEENT: Conjunctivae normal. Neck: No JVD. Cardiovascular: S1, S2 muffled. Respiratory: Breath sounds diminished in the bases. Abdomen: Soft, nontender. Legs status post surgery. Nervous system: No focal deficits. LABS: WBC 9.3, hemoglobin 10.4. ASSESSMENT: 1. Status post right total hip joint arthroplasty for severe degenerative joint disease. 2. Postoperative hypotension, status post IV fluid challenges. 3. Mild acute renal failure possibly secondary to dehydration. 4. History of hypertension. 5. History of colitis. 6. History of eczema. 7. History of oblique nerve palsy. 8. Depression. 9. History of continued ongoing nicotine dependence. 10.FULL CODE. RECOMMENDATIONS AND DISCUSSION: Recommend to continue current medications, symptomatic treatment. As mentioned earlier, the stat labs are fairly stable. I would recommend continued followup. CBC, BMP with Dr. Alegre and hold off any antihypertension medications and continue to monitor. The rest of the recommendations per surgery. The patient is extremely keen on going home. MMODL / IJN: [id number] /
== END 2021-06-12 14:06 | disposition home health service (06) ==
LOC: OR 05:29 → 4SSUR 17:04 → OR 06-12 14:06
PROVIDERS: ATTEND Orthopaedic Surgery
DX: M16.11 Unilateral primary osteoarthritis, right hip (principal); I10 Essential (primary) hypertension; F32.9 Major depressive disorder, single episode, unspecified; F17.210 Nicotine dependence, cigarettes, uncomplicated; Z91.040 Latex allergy status; K21.9 Gastro-esophageal reflux disease without esophagitis; Z79.899 Other long term (current) drug therapy; M79.604 Pain in right leg
CPT/HCPCS: 93005; 97110; 97161; 97165; 86891; 86900; 86901; 80053; 80048; 84484 ×2; 85025 ×2; 86850; 88300; 73501; 71045; 27130; C1776; P9045; J2250; J1644; J1100; J2710; J0690; J2405; J2001; J3010; J1170 ×2; J2370; J0330; J2704

== ENCOUNTER → 2021-06-18 | Outpatient (CLI) | payer MEDICARE ==
[2021-06-18 19:08] LABS: HCT 34.9 % (37.2-46.3); HGB 11.3 g/dL (12.0-15.0); MCH 32.8 pg (27.0-32.0); MCHC 32.4 g/dL (32.0-37.0); MCV 101.5 fL (80.0-97.0); Mean Platelet Volume 9.6 fL (9.5-12.2); Platelet Count 326 X 10*3/uL (140-440); RBC 3.44 X 10*6/uL (4.10-5.20); RDW 13.4 % (11.5-14.5); WBC 6.09 X 10*3/uL (4.50-10.00)
[2021-06-18 23:50] LABS: African American GFR (CKD) 88.4 (60.0-200.0); Anion Gap 7.8 mmol/L (4.00-12.00); BUN/Creat Ratio 12.5 Ratio (12.00-20.00); Calcium 8.9 mg/dL (8.7-10.3); Carbon Dioxide 28.2 mmol/L (21.6-31.8); Non-African American GFR(CKD) 76.3 (60.0-200.0); Potassium 4.5 mmol/L (3.5-5.5)
== END | disposition home or self-care (01) ==
LOC: LABWHC1 12:04
PROVIDERS: ATTEND Orthopaedic Surgery
DX: R79.89 Other specified abnormal findings of blood chemistry (principal)
CPT/HCPCS: 36415; 80048; 85027